=== PATIENT | female | born 1990 | race Caucasian/White ===

== ENCOUNTER 2019-04-30 12:19 | Day surgery (SDC) | payer BC ==
[2019-04-29 10:39] LABS: BASOPHILS % (AUTO) 0.5 % (0-1); EOSINOPHILS % (AUTO) 0.6 % (0-6); LYMPHOCYTES # (AUTO) 1.5 X10'3 (1.1-4.8); LYMPHOCYTES % (AUTO) 20.4 % (21-51); MEAN CORPUSCULAR HEMOGLOBIN 34.4 PG (27.0-31.0); MEAN CORPUSCULAR HGB CONC 34.7 g/dL (33.0-36.5); MEAN CORPUSCULAR VOLUME 98.9 FL (78-98); MEAN PLATELET VOLUME 9.2 FL (7.4-10.4); MONOCYTES # (AUTO) 0.7 X10'3 (0-0.9); NEUTROPHILS # (AUTO) 5.2 X10'3 (1.8-7.7); NEUTROPHILS % (AUTO) 69.5 % (42-75); PRE OP HEMATOCRIT 39.8 % (35.0-45.0); PRE OP HEMOGLOBIN 13.8 g/dL (12.0-16.0); PRE OP PLATELET COUNT 230 X10'3 (140-440); RED BLOOD COUNT 4.02 X10'6 (4.20-5.60); RED CELL DISTRIBUTION WIDTH 12.3 % (11.5-14.5)
[2019-04-29 10:40] LABS: CLARITY,URINE CLOUDY (Clear); COLOR,URINE YELLOW (Yellow); GLUCOSE, URINE NEGATIVE (Neg); KETONES,URINE NEGATIVE (Neg); LEUKOCYTE ESTERASE ,URINE NEGATIVE (Neg); NITRITES, URINE NEGATIVE (Neg); OCCULT BLOOD,URINE NEGATIVE (Neg); PROTEIN,URINE NEGATIVE (Neg)
[2019-04-29 10:45] LABS: UA COLLECTION TYPE NON-SPECIFIED
[2019-04-29 10:46] LABS: MUCUS STRANDS MODERATE /LPF (Neg); SQUAMOUS EPITHELIAL CELL,UR MANY /LPF (FEW)
[2019-04-29 10:47] LABS: BACTERIA,URINE 2+ /HPF (Neg); RBC,URINE 0-2 /HPF (0-2); WBC,URINE 0-4 /HPF (0-4)
[2019-04-29 10:55] LABS: ALBUMIN/GLOBULIN RATIO 1.3 (1.1-1.5); ALKALINE PHOSPHATASE 54 IU/L (46-116); BLOOD UREA NITROGEN 11 MG/DL (7-18); BUN/CREATININE RATIO 14.9 (6.6-38.0); CALCIUM 8.8 MG/DL (8.5-10.1); CHLORIDE 105 MMOL/L (99-107); CREATININE 0.74 MG/DL (0.40-0.90); PRE OP ALT 30 U/L (30-65); PRE OP ANION GAP 6 (8-16); PRE OP AST 15 U/L (10-37); PRE OP BILIRUB, TOTAL 0.5 MG/DL (0.0-1.0); PRE OP GLUCOSE 78 MG/DL (70-104); PRE OP POTASSIUM 3.8 MMOL/L (3.4-5.1); PRE OP SODIUM 138 MMOL/L (135-145); TOTAL CARBON DIOXIDE 27.2 MMOL/L (24-32); TOTAL PROTEIN 7.2 G/DL (6.4-8.2); eGFR > 90 ML/MIN
[~2019-04-30] VITALS: Ht 165.1 cm; Wt 80.0 kg
[~2019-04-30 12:19] MED LIST: LEVO25TA2 PO; ceFOXitin 2 GM ADDvantage bag 100 ML IV ONE; famotidine 10mg tablet PO ONE; ringers solution, lacted 1,000 ML IV SCH
[2019-04-30 12:30] VITALS: BP 119/84
[2019-04-30] MEDS ORDERED: LIDOcaine 1% (10mg/ml) 2ml vial ONE (13:05)
[2019-04-30] MEDS ORDERED: ringers solution, lacted 1,000 ML IV SCH (13:52)
[2019-04-30] MEDS ORDERED: ondansetron/PF 4mg/2ml inj IV PRN (13:55)
[2019-04-30] MEDS ORDERED: proCHLORperazine 10 MG/2 ml inj IV PRN (13:55)
[2019-04-30] MEDS ORDERED: morphine 4 MG/ML inj SYRINge IV PRN ×2 (13:55)
[2019-04-30] MEDS ORDERED: meperidine/PF 25mg/ml syringe IV PRN ×3 (13:55)
[2019-04-30] MEDS ORDERED: ondansetron/PF 4mg/2ml inj ONE (14:47)
[2019-04-30] MEDS ORDERED: LIDOcaine 2% (20mg/ml) 5ml vial ONE (15:24)
[2019-04-30] MEDS ORDERED: propofol inj 20 ML IV ONE (15:24)
[2019-04-30] MEDS ORDERED: sevoflurane 250ml liquid IH ONE (15:40)
[2019-04-30] MEDS ORDERED: midazolam 2 mg/2 ml injection ONE (15:47)
[2019-04-30] MEDS ORDERED: fentaNYL/PF 50MCG/1 ML 2ML syringe ONE (15:58)
[2019-04-30] MEDS ORDERED: dexamethasone sod phosphate 4mg/ml inj. ONE (15:58)
[2019-04-30 16:25] VITALS: BP 121/85
--- NOTE | 2019-04-30 16:25 | NUR ---
Received from OR via [facility]MA, accompanied by Anesthesiologist KIRBY and report given by Anesthesiolgist. PT SLEEPY, TEARFUL. OXYGENATING WELL ON 10 LPM O2 VIA MASK, NO RESP DISTRESS NOTED. DENIES NAUSEA, C/O VERY MILD ABDOMINAL CRAMPING /. NO REQUEST FOR PAIN MEDS. VERÓNICA PAD IN PLACE. VSS.
[2019-04-30 16:35] VITALS: BP 126/78
[2019-04-30 16:45] VITALS: BP 125/77
[2019-04-30 16:55] VITALS: BP 130/68
[2019-04-30 17:05] VITALS: BP 128/70
--- NOTE | 2019-04-30 17:15 | NUR ---
MILD PAIN, NO NAUSEA. VSS. TOLERATING PO FLUIDS WELL. DC INSTRUCTIONS EXPLAINED TO PT AND HER GRANDMA, THEY VERBALIZED UNDERSTANDING. DCD IN STABLE CONDITION, TAKEN TO CAR VIA WC.
== END 2019-04-30 17:15 | disposition home or self-care (01) ==
LOC: PAS 12:19
PROVIDERS: ATTEND Obstetrics & Gynecology Obstetrics
DX: O02.1 Missed abortion (principal); E03.9 Hypothyroidism, unspecified; Z87.891 Personal history of nicotine dependence; Z79.899 Other long term (current) drug therapy
CPT/HCPCS: 36415; 59820; 80053; 81001; 82948; 85025; 86885; 86900; 86901; J0694; J1100; J2001; J2250; J2405; J2704; J3010; J7120; A4618; A7000